=== PATIENT | female | born 1995 | race African-American/Black ===

== ENCOUNTER 2017-06-03 21:55 | Emergency (ER) | payer SELFPAY ==
[~2017-06-03 21:55] MED LIST: IBUP-232 PO; LEVA750T PO
[2017-06-03 22:33] VITALS: BP 135/74; PULSE 94; RESP 18; TEMP 98.5; O2SAT 99
--- NOTE | 2017-06-03 23:22 | PD ---
HPI Chief Complaint: GI Complaint Time Seen by Provider: 23:08 Travel History International Travel<30 days: No Contact w/Intl Traveler<30days: No Traveled to known affect area: No History of Present Illness HPI 22-year-old female , LMP in March of this year, positive home test, here for evaluation of nausea, vomiting, and abdominal pain. The patient reports that for the last 2 days she has been having several episodes of nausea and vomiting. She reports intermittent burning sensation in her epigastrium that radiates up into her chest. Emesis is brown with occasional streaks of blood. No history of abdominal surgeries. No fevers or chills. No vaginal bleeding or discharge. PFSH Past Medical History Medical History: Denies Significant Hx Diminished Hearing: No Immunizations Current: Yes ?: : 0 Para: 0 Past Surgical History Surgical History: No Previous Surgery Social History Alcohol Use: No (DENIES) Tobacco Use: No Substance Use: No Allergies-Medications (Allergen,Severity, Reaction): Coded Allergies: No Known Allergies (Unverified Adverse Reaction, Unknown, 06/03/17) Reported Meds & Prescriptions Reported Meds & Active Scripts Active Ibuprofen 600 Mg Tab 600 Mg PO Q6H PRN Levaquin (Levofloxacin) 750 Mg Tab 750 Mg PO DAILY 7 Days Review of Systems Except as stated in HPI: all other systems reviewed are Neg Physical Exam Narrative GENERAL: Well-developed, well-nourished, comfortable, no apparent distress. SKIN: Focused skin assessment warm/dry. HEAD: Atraumatic. Normocephalic. EYES: Pupils equal and round. No scleral icterus. No injection or drainage. ENT: Mucous membranes pink and moist. NECK: Trachea midline. No JVD. CARDIOVASCULAR: Regular rate and rhythm. RESPIRATORY: No accessory muscle use. Clear to auscultation. Breath sounds equal bilaterally. GASTROINTESTINAL: Abdomen soft, non-tender, nondistended. TUBE WASHER: Exam performed in the presence of a female nurse. Normal external genitalia. Scant/whitish/physiologic/eau-yumt-osgpwylu vaginal discharge. Normal-appearing cervix with closed cervical office. MUSCULOSKELETAL: No obvious deformities. No clubbing. No cyanosis. No edema. NEUROLOGICAL: Awake and alert. No obvious cranial nerve deficits. Motor grossly within normal limits. Normal speech. PSYCHIATRIC: Appropriate mood and affect; insight and judgment normal. Data Data Last Documented VS Vital Signs Date Time Temp Pulse Resp B/P (MAP) Pulse Ox O2 Delivery O2 Flow Rate FiO2 06/03/17 22:33 98.5 94 18 135/74 (94) 99 Orders Orders Beta Hcg (Quant/Titer) (06/03/17 23:17) Complete Blood Count With Diff (06/03/17 23:17) Comprehensive Metabolic Panel (06/03/17 23:17) Type And Screen (06/03/17 23:17) Urinalysis - C+S If Indicated (06/03/17 23:17) Ed Urine Pregnancytest Poc (06/03/17 23:17) Lipase (06/03/17 23:17) Sodium Chlor 0.9% 1000 Ml Inj (Ns 1000 M (06/03/17 23:30) Famotidine (Pepcid) (06/03/17 23:30) Ondansetron Inj (Zofran Inj) (06/03/17 23:30) Us Pelvis (Ques Pr/Ect)W Trans (06/03/17 ) Urine Culture (06/04/17 00:12) Potassium Chloride (Kcl) (06/04/17 01:00) Ceftriaxone Inj (Rocephin Inj) (06/04/17 01:00) Gc And Chlamydia Pcr (06/04/17 00:53) Wet Prep Profile (06/04/17 00:53) Labs Laboratory Tests Test 06/04/17 00:11 06/04/17 00:12 White Blood Count 11.6 TH/MM3 Red Blood Count 5.28 MIL/MM3 Hemoglobin 14.9 GM/DL Hematocrit 43.5 % Mean Corpuscular Volume 82.4 FL Mean Corpuscular Hemoglobin 28.2 PG Mean Corpuscular Hemoglobin Concent 34.2 % Red Cell Distribution Width 13.6 % Platelet Count 353 TH/MM3 Mean Platelet Volume 8.7 FL Neutrophils (%) (Auto) 83.9 % Lymphocytes (%) (Auto) 9.8 % Monocytes (%) (Auto) 5.9 % Eosinophils (%) (Auto) 0.1 % Basophils (%) (Auto) 0.3 % Neutrophils # (Auto) 9.8 TH/MM3 Lymphocytes # (Auto) 1.1 TH/MM3 Monocytes # (Auto) 0.7 TH/MM3 Eosinophils # (Auto) 0.0 TH/MM3 Basophils # (Auto) 0.0 TH/MM3 CBC Comment DIFF FINAL Differential Comment Blood Urea Nitrogen 5 MG/DL Creatinine 0.62 MG/DL Random Glucose 84 MG/DL Total Protein 8.3 GM/DL Albumin 4.0 GM/DL Calcium Level 9.3 MG/DL Alkaline Phosphatase 123 U/L Aspartate Amino Transf (AST/SGOT) 36 U/L Alanine Aminotransferase (ALT/SGPT) 43 U/L Total Bilirubin 0.6 MG/DL Sodium Level 139 MEQ/L Potassium Level 3.2 MEQ/L Chloride Level 105 MEQ/L Carbon Dioxide Level 24.5 MEQ/L Anion Gap 10 MEQ/L Estimat Glomerular Filtration Rate 148 ML/MIN Lipase 82 U/L Human Chorionic Gonadotropin, Quant 69048 MIU/ML Urine Color YELLOW Urine Turbidity HAZY Urine pH 6.5 Urine Specific [place] 1.024 Urine Protein 30 mg/dL Urine Glucose (UA) NEG mg/dL Urine Ketones 40 mg/dL Urine Occult Blood NEG Urine Nitrite NEG Urine Bilirubin NEG Urine Urobilinogen 8.0 MG/DL Urine Leukocyte Esterase MOD Urine RBC 2 /hpf Urine WBC 20 /hpf Urine Squamous Epithelial Cells 8 /hpf Urine Bacteria MANY /hpf Urine Mucus MOD /lpf Microscopic Urinalysis Comment CULTURE INDICATED MDM Medical Decision Making Medical Screen Exam Complete: Yes Emergency Medical Condition: Yes Differential Diagnosis Hyperemesis gravidarum, gastritis, peptic ulcer disease, pancreatitis, , ectopic Narrative Course Vital signs reviewed. CBC: WBC 11.6, hemoglobin 14.9, hematocrit 43.5, platelets 353, neutrophils 84%. CMP is remarkable for potassium 3.2, which was replaced orally, otherwise unremarkable. Lipase is 82. Beta-hCG is 33,782. UA is suggestive of UTI. Patient was given 1 g of IV Rocephin. Wet prep: Pelvic ultrasound: At approximately 1 am at the end of my shift the patient was signed out to JORDEN [place]en[place] to follow up with wet prep and US and disposition. Epifanio Sandoval MD Jun 03, 2017 23:22
[2017-06-03] MEDS ORDERED: ONDANSETRON HCL 4 MG/2 ML VIAL IV PUSH ONE (23:30)
[2017-06-03] MEDS ORDERED: FAMOTIDINE 20 MG TAB PO ONE (23:30)
[2017-06-03] MEDS ORDERED: SODIUM CHLOR 0.9% 1000 ML INJ 1,000 ML IV ONE (23:30)
[2017-06-04 00:33] LABS: BACTERIA, URINE MANY /hpf; BILIRUBIN, URINE NEG (NEG); BLOOD, URINE NEG (NEG); GLUCOSE,URINE NEG (NEG); KETONE, URINE 40 mg/dL (NEG); MUCUS URINE MOD /lpf (OCC); NITRITE,URINE NEG (NEG); PH, URINE 6.5 (5.0-8.5); SQUAMOUS EPITHELIAL CELL URINE 8 /hpf (0-5); URINE COLOR YELLOW (YELLW/STRAW); URINE LEUKOCYTE ESTERASE MOD (NEG)
[2017-06-04 00:34] LABS: AUTOMATED NEUTROPHIL # 9.8 TH/MM3 (1.8-7.7); BASOPHIL % 0.3 % (0.0-2.0); EOSINOPHIL % 0.1 % (0.0-4.0); HEMATOCRIT 43.5 % (35.0-46.0); HEMOGLOBIN 14.9 GM/DL (11.6-15.3); LYMPH % 9.8 % (9.0-44.0); LYMPHOCYTE # 1.1 TH/MM3 (1.0-4.8); MEAN CELL VOLUME 82.4 FL (80.0-100.0); MEAN CORPUSCULAR HEMOGLOBIN 28.2 PG (27.0-34.0); MEAN CORPUSCULAR HGB CONC 34.2 % (32.0-36.0); MEAN PLATELET VOLUME 8.7 FL (7.0-11.0); MONO % 5.9 % (0.0-8.0); MONOCYTE # 0.7 TH/MM3 (0-0.9); NEUT % 83.9 % (16.0-70.0); PLATELET COUNT 353 TH/MM3 (150-450); RED BLOOD COUNT 5.28 MIL/MM3 (4.00-5.30); RED CELL DISTRIBUTION WIDTH 13.6 % (11.6-17.2); WHITE BLOOD COUNT 11.6 TH/MM3 (4.0-11.0)
[2017-06-04 00:49] LABS: ALT (GPT) 43 U/L (9-42); AST (GOT) 36 U/L (16-38); BICARBONATE 24.5 MEQ/L (21.0-32.0); BLOOD UREA NITROGEN 5 MG/DL (7-18); CALCIUM 9.3 MG/DL (8.5-10.1); CHLORIDE 105 MEQ/L (98-107); CREATININE 0.62 MG/DL (0.50-1.00); GLOMERULAR FILTRATION RATE 148 ML/MIN (>89); GLUCOSE,RANDOM 84 MG/DL (74-106); SODIUM (NA) 139 MEQ/L (136-145)
[2017-06-04] MEDS ORDERED: cefTRIAXone INJ 1,000 MG in SODIUM CHLORIDE 0.9% INJ 100 ML IV ONE (01:00)
[2017-06-04] MEDS ORDERED: POTASSIUM CHLORIDE 20 MEQ CONTROLLED RELEASE TAB PO ONE (01:00)
[2017-06-04 01:06] LABS: ALKALINE PHOSPHATASE 123 U/L (45-117); TOTAL BILIRUBIN ADULT 0.6 MG/DL (0.2-1.0); TOTAL PROTEIN 8.3 GM/DL (6.4-8.2)
--- NOTE | 2017-06-04 01:42 | RADRPT ---
EXAM DATE/TIME: 06/03/2017 23:42 [facility] COMPARISON: No previous studies available for comparison. INDICATIONS : Pelvic pain. LAB(S): Beta-hC MEDICAL HISTORY : . SURGICAL HISTORY : None. ENCOUNTER: Initial ACUITY: 2 days PAIN SCORE: 1/10 LOCATION: Bilateral proximal MEASUREMENTS: UTERUS: 7.9 x 5.0 x 3.7 cm ENDOMETRIAL STRIPE: 11 mm RIGHT OVARY: 2.8 x 1.6 x 2.0 cm LEFT OVARY: 3.7 x 2.6 x 2.7 cm FREE FLUID: No CROWN RUMP LENGTH: 0.2 = 5 WKS 5 DAYS FINDINGS: UTERUS: Gestational sac, yolk sac and pole seen in the uterine cavity. [place]-rump length is 2.2 mm whic h corresponds to a gestational age of 5 weeks 5 days. No perceptible heart tones but potentiall y too early. RIGHT OVARY: Ovary contains no mass or significant cystic lesion. LEFT OVARY: Ovary contains no mass or significant cystic lesion. MISCELLANEOUS: No free fluid. CONCLUSION: Single early intrauterine as described. No heart tones detected but potentially too e claudia and surveillance is recommended. No other complications are demonstrated. Azar Ludwig MD on June 04, 2017 at 1:37 Board Certified Radiologist. This report was verified electronically.
[2017-06-04] MEDS ORDERED: PYRI25TA PO (01:56)
[2017-06-04] MEDS ORDERED: CEPH-460 PO (01:56)
--- NOTE | 2017-06-04 01:59 | PD ---
Physical Exam Date Seen by Provider: Jun 04, 2017 Time Seen by Provider: 01:56 Narrative GENERAL: This is a well-nourished, well-developed patient, in no apparent distress. SKIN: No rashes, ecchymoses or lesions. Warm and dry. HEAD: Atraumatic. Normocephalic. EYES: PERRL, EOMI, no discharge or injection. No scleral icterus. EARS: Clear NOSE: Nasal turbinates appear normal. THROAT: Mucosa pink and moist. Airway patent. NECK: Trachea midline. supple, moves head freely. LUNGS: Clear to auscultation. CV: Regular in rhythm. ABDOMEN: Soft nontender. EXT: No clubbing cyanosis or edema. Data Data Last Documented VS Vital Signs Date Time Temp Pulse Resp B/P (MAP) Pulse Ox O2 Delivery O2 Flow Rate FiO2 06/03/17 22:33 98.5 94 18 135/74 (94) 99 Orders Orders Beta Hcg (Quant/Titer) (06/03/17 23:17) Complete Blood Count With Diff (06/03/17 23:17) Comprehensive Metabolic Panel (06/03/17 23:17) Type And Screen (06/03/17 23:17) Urinalysis - C+S If Indicated (06/03/17 23:17) Ed Urine Pregnancytest Poc (06/03/17 23:17) Lipase (06/03/17 23:17) Sodium Chlor 0.9% 1000 Ml Inj (Ns 1000 M (06/03/17 23:30) Famotidine (Pepcid) (06/03/17 23:30) Ondansetron Inj (Zofran Inj) (06/03/17 23:30) Us Pelvis (Ques Pr/Ect)W Trans (06/03/17 ) Urine Culture (06/04/17 00:12) Potassium Chloride (Kcl) (06/04/17 01:00) Ceftriaxone Inj (Rocephin Inj) (06/04/17 01:00) Gc And Chlamydia Pcr (06/04/17 00:53) Wet Prep Profile (06/04/17 00:53) Ed Discharge Order (06/04/17 01:54) Labs Laboratory Tests Test 06/04/17 00:11 06/04/17 00:12 06/04/17 01:20 White Blood Count 11.6 TH/MM3 Red Blood Count 5.28 MIL/MM3 Hemoglobin 14.9 GM/DL Hematocrit 43.5 % Mean Corpuscular Volume 82.4 FL Mean Corpuscular Hemoglobin 28.2 PG Mean Corpuscular Hemoglobin Concent 34.2 % Red Cell Distribution Width 13.6 % Platelet Count 353 TH/MM3 Mean Platelet Volume 8.7 FL Neutrophils (%) (Auto) 83.9 % Lymphocytes (%) (Auto) 9.8 % Monocytes (%) (Auto) 5.9 % Eosinophils (%) (Auto) 0.1 % Basophils (%) (Auto) 0.3 % Neutrophils # (Auto) 9.8 TH/MM3 Lymphocytes # (Auto) 1.1 TH/MM3 Monocytes # (Auto) 0.7 TH/MM3 Eosinophils # (Auto) 0.0 TH/MM3 Basophils # (Auto) 0.0 TH/MM3 CBC Comment DIFF FINAL Differential Comment Blood Urea Nitrogen 5 MG/DL Creatinine 0.62 MG/DL Random Glucose 84 MG/DL Total Protein 8.3 GM/DL Albumin 4.0 GM/DL Calcium Level 9.3 MG/DL Alkaline Phosphatase 123 U/L Aspartate Amino Transf (AST/SGOT) 36 U/L Alanine Aminotransferase (ALT/SGPT) 43 U/L Total Bilirubin 0.6 MG/DL Sodium Level 139 MEQ/L Potassium Level 3.2 MEQ/L Chloride Level 105 MEQ/L Carbon Dioxide Level 24.5 MEQ/L Anion Gap 10 MEQ/L Estimat Glomerular Filtration Rate 148 ML/MIN Lipase 82 U/L Human Chorionic Gonadotropin, Quant 72664 MIU/ML Urine Color YELLOW Urine Turbidity HAZY Urine pH 6.5 Urine Specific [place] 1.024 Urine Protein 30 mg/dL Urine Glucose (UA) NEG mg/dL Urine Ketones 40 mg/dL Urine Occult Blood NEG Urine Nitrite NEG Urine Bilirubin NEG Urine Urobilinogen 8.0 MG/DL Urine Leukocyte Esterase MOD Urine RBC 2 /hpf Urine WBC 20 /hpf Urine Squamous Epithelial Cells 8 /hpf Urine Bacteria MANY /hpf Urine Mucus MOD /lpf Microscopic Urinalysis Comment CULTURE INDICATED Clue Cells (Wet Prep) NS Vaginal Trichomonas (Wet Prep) NS Vaginal Yeast (Wet Prep) NS MDM Medical Record Reviewed: Yes Supervised Visit with EFREN: Yes Interpretation(s) Laboratory Tests Test 06/04/17 00:11 06/04/17 00:12 06/04/17 01:20 White Blood Count 11.6 TH/MM3 Red Blood Count 5.28 MIL/MM3 Hemoglobin 14.9 GM/DL Hematocrit 43.5 % Mean Corpuscular Volume 82.4 FL Mean Corpuscular Hemoglobin 28.2 PG Mean Corpuscular Hemoglobin Concent 34.2 % Red Cell Distribution Width 13.6 % Platelet Count 353 TH/MM3 Mean Platelet Volume 8.7 FL Neutrophils (%) (Auto) 83.9 % Lymphocytes (%) (Auto) 9.8 % Monocytes (%) (Auto) 5.9 % Eosinophils (%) (Auto) 0.1 % Basophils (%) (Auto) 0.3 % Neutrophils # (Auto) 9.8 TH/MM3 Lymphocytes # (Auto) 1.1 TH/MM3 Monocytes # (Auto) 0.7 TH/MM3 Eosinophils # (Auto) 0.0 TH/MM3 Basophils # (Auto) 0.0 TH/MM3 CBC Comment DIFF FINAL Differential Comment Blood Urea Nitrogen 5 MG/DL Creatinine 0.62 MG/DL Random Glucose 84 MG/DL Total Protein 8.3 GM/DL Albumin 4.0 GM/DL Calcium Level 9.3 MG/DL Alkaline Phosphatase 123 U/L Aspartate Amino Transf (AST/SGOT) 36 U/L Alanine Aminotransferase (ALT/SGPT) 43 U/L Total Bilirubin 0.6 MG/DL Sodium Level 139 MEQ/L Potassium Level 3.2 MEQ/L Chloride Level 105 MEQ/L Carbon Dioxide Level 24.5 MEQ/L Anion Gap 10 MEQ/L Estimat Glomerular Filtration Rate 148 ML/MIN Lipase 82 U/L Human Chorionic Gonadotropin, Quant 53576 MIU/ML Urine Color YELLOW Urine Turbidity HAZY Urine pH 6.5 Urine Specific [place] 1.024 Urine Protein 30 mg/dL Urine Glucose (UA) NEG mg/dL Urine Ketones 40 mg/dL Urine Occult Blood NEG Urine Nitrite NEG Urine Bilirubin NEG Urine Urobilinogen 8.0 MG/DL Urine Leukocyte Esterase MOD Urine RBC 2 /hpf Urine WBC 20 /hpf Urine Squamous Epithelial Cells 8 /hpf Urine Bacteria MANY /hpf Urine Mucus MOD /lpf Microscopic Urinalysis Comment CULTURE INDICATED Clue Cells (Wet Prep) NS Vaginal Trichomonas (Wet Prep) NS Vaginal Yeast (Wet Prep) NS Last 24 hours Impressions Pelvis Ultrasound 06/03/17 0000 Signed Impressions: Service Date/Time: Saturday, June 03, 2017 23:42 - CONCLUSION: Single early intrauterine as described. No heart tones detected but potentially too early and surveillance is recommended. No other complications are demonstrated. Azar Ludwig MD Differential Diagnosis . Narrative Course Patient's wet prep is nondiagnostic. She has been treated for GC and chlamydia. Patient will be discharged home with B6 and Keflex.. Patient's ultrasound shows a 5 week IUP but no heart tone. This may be early versus potential demise. Close monitoring is advised. Patient is made aware of these findings. This is UTI, early , rule out threatened AB Diagnosis Primary Impression: UTI Additional Impressions: Early Threatened AB Patient Instructions: General Instructions Additional Instruction: Rest. Increase fluids. Pyridoxine for nausea. Keflex to complete. Pepcid. Follow-up with PRODUCTION DISPATCHER in the next 3-7 days. Repeat quantitative hCG and ultrasound in 1 week. Return to the ER if any problems. Med/Other Pt SpecificInfo: Prescription(s) given Scripts Famotidine (Pepcid) 20 Mg Tab 20 MG PO BID for 14 Days, #28 TAB 0 Refills Prov: Epifanio Sandoval MD 06/04/17 Cephalexin (Keflex) 500 Mg Cap 500 MG PO Q12H for Infection for 7 Days, #14 CAP 0 Refills Prov: Epifanio Sandoval MD 06/04/17 Pyridoxine HCl (Vitamin B6) (Vitamin B-6) 25 Mg Tablet 1 TAB PO Q6HR Y for NAUSEA for 7 Days Prov: Epifanio Sandoval MD 06/04/17 Disposition: 01 DISCHARGE HOME Condition: Stable Steffen Baltazar Jun 04, 2017 01:59
[2017-06-04] MEDS ORDERED: FAMO1TAB37 PO (02:00)
== END 2017-06-04 03:37 | disposition home or self-care (01) ==
LOC: NEPD 21:55
DX: O23.41 Unspecified infection of urinary tract in pregnancy, first trimester (principal); O20.0 Threatened abortion; Z3A.01 Less than 8 weeks gestation of pregnancy; Z79.899 Other long term (current) drug therapy
CPT/HCPCS: 76700; 76817; 80053; 81001; 83690; 84702; 84703; 85025; 86850; 87086; 87210; 87491; 87591; 96361; 96374; 96375; 99284; J0696; J2405; J7030

== ENCOUNTER 2017-06-09 12:35 | Emergency (ER) | payer SELFPAY ==
[~2017-06-09] VITALS: Ht 162.6 cm; Wt 84.5 kg
[~2017-06-09 12:35] MED LIST changes: +CEPH-460 PO; +FAMO1TAB37 PO; +PYRI25TA PO
[2017-06-09 12:49] VITALS: BP 136/70; PULSE 95; RESP 16; TEMP 98.6; O2SAT 100
[2017-06-09] MEDS ORDERED: SODIUM CHLOR 0.9% 1000 ML INJ 1,000 ML IV SCH (13:05)
--- NOTE | 2017-06-09 13:10 | PD ---
HPI Chief Complaint: GI Complaint Time Seen by Provider: 12:58 Travel History International Travel<30 days: No Contact w/Intl Traveler<30days: No Traveled to known affect area: No History of Present Illness HPI This is a 22-year-old female who presents for evaluation of persistent nausea and vomiting. Symptoms started 1 week ago. She reports multiple episodes of nonbloody emesis on a daily basis. She reports some suprapubic discomfort she has had some white discharge. She denies vaginal bleeding, diarrhea or constipation, fevers or chills, dysuria, flank pain. She was seen here for evaluation of the symptoms on June 03. She had an ultrasound which revealed a single intrauterine no heart tones were detected but was potentially too early. [place]CG [place] [address]. Her urinalysis was suggestive of UTI and she was given a dose of Rocephin and discharged with Keflex as well as B6 for her nausea. She reports that she has been vomiting her Keflex and the B6 has not helped with her nausea. Her Chlamydia gonorrhea PCR has now returned and she is positive for chlamydia. She is sexually active with one partner. No other complaints. PFSH Past Medical History Diminished Hearing: No Immunizations Current: Yes ?: LMP: MAR 27, 2017 : 0 Para: 0 Social History Alcohol Use: No (DENIES) Tobacco Use: No Substance Use: No Allergies-Medications (Allergen,Severity, Reaction): Coded Allergies: No Known Allergies (Unverified Adverse Reaction, Unknown, 06/03/17) Reported Meds & Prescriptions Reported Meds & Active Scripts Active Zofran (Ondansetron HCl) 4 Mg Tab 4 Mg PO Q6HR PRN Pepcid (Famotidine) 20 Mg Tab 20 Mg PO BID 14 Days Keflex (Cephalexin) 500 Mg Cap 500 Mg PO Q12H 7 Days Vitamin B-6 (Pyridoxine HCl (Vitamin B6)) 25 Mg Tablet 1 Tab PO Q6HR PRN 7 Days Ibuprofen 600 Mg Tab 600 Mg PO Q6H PRN Levaquin (Levofloxacin) 750 Mg Tab 750 Mg PO DAILY 7 Days Review of Systems Except as stated in HPI: all other systems reviewed are Neg Physical Exam Narrative GENERAL: Well-developed well-nourished female no acute distress SKIN: Warm and dry. HEAD: Atraumatic. Normocephalic. EYES: Pupils equal and round. No scleral icterus. No injection or drainage. ENT: No nasal bleeding or discharge. Mucous membranes pink and moist. NECK: Trachea midline. No JVD. CARDIOVASCULAR: Regular rate and rhythm. No murmur appreciated. RESPIRATORY: No accessory muscle use. Clear to auscultation. Breath sounds equal bilaterally. GASTROINTESTINAL: Abdomen soft, non-tender, nondistended. Hepatic and splenic margins not palpable. No CVA tenderness. MUSCULOSKELETAL: No obvious deformities. No clubbing. No cyanosis. No edema. NEUROLOGICAL: Awake and alert. No obvious cranial nerve deficits. Motor grossly within normal limits. Normal speech. PSYCHIATRIC: Appropriate mood and affect; insight and judgment normal. Data Data Last Documented VS Vital Signs Date Time Temp Pulse Resp B/P (MAP) Pulse Ox O2 Delivery O2 Flow Rate FiO2 06/09/17 12:49 98.6 95 16 136/70 (92) 100 Orders Orders Complete Blood Count With Diff (06/09/17 13:05) Comprehensive Metabolic Panel (06/09/17 13:05) Urinalysis - C+S If Indicated (06/09/17 13:05) Iv Access Insert/Monitor (06/09/17 13:05) Ondansetron Inj (Zofran Inj) (06/09/17 13:15) Sodium Chlor 0.9% 1000 Ml Inj (Ns 1000 M (06/09/17 13:05) Azithromycin Powd Pack (Zithromax Powd P (06/09/17 13:15) Urine Culture (06/09/17 13:51) Potassium Chloride (Kcl) (06/09/17 15:00) Labs Laboratory Tests Test 06/09/17 13:43 06/09/17 13:45 06/09/17 13:51 Blood Urea Nitrogen 5 MG/DL Creatinine 0.69 MG/DL Random Glucose 75 MG/DL Total Protein 8.7 GM/DL Albumin 4.1 GM/DL Calcium Level 9.6 MG/DL Alkaline Phosphatase 137 U/L Aspartate Amino Transf (AST/SGOT) 27 U/L Alanine Aminotransferase (ALT/SGPT) 40 U/L Total Bilirubin 0.4 MG/DL Sodium Level 136 MEQ/L Potassium Level 3.3 MEQ/L Chloride Level 106 MEQ/L Carbon Dioxide Level 18.4 MEQ/L Anion Gap 12 MEQ/L Estimat Glomerular Filtration Rate 131 ML/MIN White Blood Count 10.4 TH/MM3 Red Blood Count 5.18 MIL/MM3 Hemoglobin 15.5 GM/DL Hematocrit 42.9 % Mean Corpuscular Volume 82.8 FL Mean Corpuscular Hemoglobin 29.9 PG Mean Corpuscular Hemoglobin Concent 36.1 % Red Cell Distribution Width 13.7 % Platelet Count 313 TH/MM3 Mean Platelet Volume 8.6 FL Neutrophils (%) (Auto) 72.7 % Lymphocytes (%) (Auto) 18.2 % Monocytes (%) (Auto) 8.2 % Eosinophils (%) (Auto) 0.6 % Basophils (%) (Auto) 0.3 % Neutrophils # (Auto) 7.6 TH/MM3 Lymphocytes # (Auto) 1.9 TH/MM3 Monocytes # (Auto) 0.9 TH/MM3 Eosinophils # (Auto) 0.1 TH/MM3 Basophils # (Auto) 0.0 TH/MM3 CBC Comment AUTO DIFF Differential Comment AUTO DIFF CONFIRMED Tear Drop Cells 1+ Urine Color YELLOW Urine Turbidity HAZY Urine pH 7.5 Urine Specific [place] 1.026 Urine Protein 30 mg/dL Urine Glucose (UA) NEG mg/dL Urine Ketones 80 mg/dL Urine Occult Blood NEG Urine Nitrite NEG Urine Bilirubin NEG Urine Urobilinogen 2.0 MG/DL Urine Leukocyte Esterase MOD Urine RBC LESS THAN 1 /hpf Urine WBC 13 /hpf Urine Squamous Epithelial Cells 28 /hpf Urine Bacteria MOD /hpf Urine Mucus FEW /lpf Microscopic Urinalysis Comment CULTURE INDICATED MDM Medical Decision Making Medical Screen Exam Complete: Yes Emergency Medical Condition: Yes Medical Record Reviewed: Yes Differential Diagnosis Hyperemesis gravidarum, dehydration, electrolyte abnormality, intrauterine Narrative Course I reviewed the patient's records. She does not appear acutely dehydrated but she has had persistent nausea and vomiting despite B6 treatment. She requires treatment for her recent positive Chlamydia test and therefore she will be given azithromycin here. She will be given Zofran for her nausea. Potassium is 3.3. Urinalysis is grossly contaminated specimen with 28 squamous epithelial cells. Her previous urine culture growing mixed gram-positive leandro. She feels significantly improved after fluids and Zofran treatment. Oral potassium chloride administered. She will be discharged with Zofran, to discuss the potential risks with Zofran use but this is balanced out by the risks of acute dehydration. Diagnosis Primary Impression: Nausea and vomiting during Additional Impression: Chlamydia Additional Instructions: Zofran as needed for nausea. Advance diet as tolerated. Establish care with a wood and hardware outfitter. Have all partners tested and treated for STDs. Follow-up with wood and hardware outfitter or health department for further STD testing. Return for any emergent medical conditions. Med/Other Pt SpecificInfo: Prescription(s) given Scripts Ondansetron (Zofran) 4 Mg Tab 4 MG PO Q6HR Y for NAUSEA OR VOMITING, #15 TAB 0 Refills Prov: Eddi Woodard MD 06/09/17 Disposition: 01 DISCHARGE HOME Condition: Stable Nabil Daniels Jun 09, 2017 13:10
[2017-06-09] MEDS ORDERED: ONDANSETRON HCL 4 MG/2 ML VIAL IVP ONE (13:15)
[2017-06-09] MEDS ORDERED: AZITHROMYCIN PWD FOR SUSP 1 GM PACKET PO ONE (13:15)
[2017-06-09 14:20] LABS: AUTOMATED NEUTROPHIL # 7.6 TH/MM3 (1.8-7.7); BASOPHIL % 0.3 % (0.0-2.0); EOSINOPHIL # 0.1 TH/MM3 (0-0.4); EOSINOPHIL % 0.6 % (0.0-4.0); HEMATOCRIT 42.9 % (35.0-46.0); HEMOGLOBIN 15.5 GM/DL (11.6-15.3); LYMPH % 18.2 % (9.0-44.0); LYMPHOCYTE # 1.9 TH/MM3 (1.0-4.8); MEAN CELL VOLUME 82.8 FL (80.0-100.0); MEAN CORPUSCULAR HEMOGLOBIN 29.9 PG (27.0-34.0); MEAN PLATELET VOLUME 8.6 FL (7.0-11.0); MONO % 8.2 % (0.0-8.0); MONOCYTE # 0.9 TH/MM3 (0-0.9); NEUT % 72.7 % (16.0-70.0); PLATELET COUNT 313 TH/MM3 (150-450); RED BLOOD COUNT 5.18 MIL/MM3 (4.00-5.30); RED CELL DISTRIBUTION WIDTH 13.7 % (11.6-17.2); WHITE BLOOD COUNT 10.4 TH/MM3 (4.0-11.0)
[2017-06-09 14:21] LABS: MEAN CORPUSCULAR HGB CONC 36.1 % (32.0-36.0)
[2017-06-09 14:24] LABS: BACTERIA, URINE MOD /hpf; BILIRUBIN, URINE NEG (NEG); BLOOD, URINE NEG (NEG); GLUCOSE,URINE NEG (NEG); KETONE, URINE 80 mg/dL (NEG); MUCUS URINE FEW /lpf (OCC); NITRITE,URINE NEG (NEG); PH, URINE 7.5 (5.0-8.5); SQUAMOUS EPITHELIAL CELL URINE 28 /hpf (0-5); URINE COLOR YELLOW (YELLW/STRAW); URINE LEUKOCYTE ESTERASE MOD (NEG)
[2017-06-09 14:36] LABS: ALBUMIN 4.1 GM/DL (3.4-5.0); AST (GOT) 27 U/L (16-38); BICARBONATE 18.4 MEQ/L (21.0-32.0); BLOOD UREA NITROGEN 5 MG/DL (7-18); CALCIUM 9.6 MG/DL (8.5-10.1); CHLORIDE 106 MEQ/L (98-107); CREATININE 0.69 MG/DL (0.50-1.00); GLOMERULAR FILTRATION RATE 131 ML/MIN (>89); GLUCOSE,RANDOM 75 MG/DL (74-106); SODIUM (NA) 136 MEQ/L (136-145)
[2017-06-09 14:38] LABS: ALT (GPT) 40 U/L (9-42)
[2017-06-09 14:39] LABS: ALKALINE PHOSPHATASE 137 U/L (45-117); TOTAL BILIRUBIN ADULT 0.4 MG/DL (0.2-1.0); TOTAL PROTEIN 8.7 GM/DL (6.4-8.2)
[2017-06-09 14:56] LABS: TEARDROP RBCS 1+ (NORMAL)
[2017-06-09] MEDS ORDERED: ZOFR4TAB PO (14:59)
[2017-06-09] MEDS ORDERED: POTASSIUM CHLORIDE 20 MEQ CONTROLLED RELEASE TAB PO ONE (15:00)
== END 2017-06-09 15:36 | disposition home or self-care (01) ==
LOC: NEPC 12:35
DX: O21.9 Vomiting of pregnancy, unspecified (principal); O98.311 Other infections with a predominantly sexual mode of transmission complicating pregnancy, first trimester; A56.02 Chlamydial vulvovaginitis
CPT/HCPCS: 80053; 81001; 85025; 87086; 96361; 96374; 99284; J2405; J7030